=== PATIENT | male | born 1985 | race Hispanic/Latino ===

== ENCOUNTER 2017-01-21 09:13 | Day surgery (SDC) | payer BC ==
[2017-01-21 10:06] VITALS: O2SAT 100
[2017-01-21] MEDS ORDERED: Ciprofloxacin 400mg/200ml D5W 400 MG/200 ML BAG IVPB ONE (11:27)
[2017-01-21] MEDS ORDERED: Lactated Ringer's 1,000 ML IV ONE ×2 (11:30→12:20)
[2017-01-21] MEDS ORDERED: Propofol 10 mg/ml Inj (20 ML) ONE (11:31)
[2017-01-21] MEDS ORDERED: Midazolam 2 MG/2 ML VIAL ONE (11:31)
[2017-01-21] MEDS: HYDROmorphone 0.5 mg/0.5 ml ISec IVP PRN ×2 (13:23→13:42)
[2017-01-21 14:23] VITALS: BP 101/71; PULSE 56; RESP 11; TEMP 97.2
--- NOTE | 2017-01-21 22:47 | OP ---
PROCEDURE DATE: 01/21/2017 DESCRIPTION OF PROCEDURE: The patient has a large varicocele on the left. The patient was brought to the OR for observe varicocelectomy. The patient was prepped and draped in usual manner, where a small incision was made adjacent to the suprapubic bone. Incision was made through the skin. The gentle dissection revealed the cord. The cord was elevated using a Jolo. Careful examination of the cord revealed normal vas and the artery to the testicle was noted using a Doppler. Dissection of the cord revealed one large vein and three small veins, these were cut and ligated and tied. There was good Doppler findings on the artery were noted and the vas was noted and cleaned. The skin was then closed using subcu and jareth on the skin. The patient tolerated the procedure well and left the OR in good condition. Tim Avelar MD
== END 2017-01-21 15:23 | disposition home or self-care (01) ==
LOC: C.SDS 09:13
PROVIDERS: ATTEND Urology
DX: I86.1 Scrotal varices (principal)
CPT/HCPCS: 55530; J0744; J1170; J2001; J2250; J2405; J2704; J3010; J7120